=== PATIENT | male | born 1935 | race Caucasian/White ===

== ENCOUNTER 2019-04-22 16:59 | Emergency (ER) | payer BC ==
[~2019-04-22] VITALS: Ht 170.2 cm; Wt 90.9 kg
[~2019-04-22 16:59] MED LIST: ASPI-845 PO; ATOR20TA PO; CARV-50 PO; GABA-532 PO; PANT20TA3 PO
[2019-04-22] MEDS ORDERED: dexamethasone sod phosphate 10mg/ml inj IV STA (17:23)
[2019-04-22] MEDS ORDERED: normal saline 1000ML IV soln IVB ONE (17:25)
[2019-04-22] MEDS ORDERED: famotidine/PF 10 mg/ml inj IV ONE (17:25)
[2019-04-22] MEDS ORDERED: diphenhydrAMINE 50 mg/ml inj IV ONE (17:25)
[2019-04-22 17:57] LABS: BASOPHILS % (AUTO) 0.3 % (0-1); EOSINOPHILS # (AUTO) 0.2 X10'3 (0-0.9); EOSINOPHILS % (AUTO) 1.6 % (0-6); HEMATOCRIT 41.4 % (42.0-52.0); LYMPHOCYTES # (AUTO) 2.1 X10'3 (1.1-4.8); LYMPHOCYTES % (AUTO) 16.3 % (21-51); MEAN CORPUSCULAR HEMOGLOBIN 31.1 PG (27.0-31.0); MEAN CORPUSCULAR HGB CONC 33.8 g/dL (33.0-36.5); MEAN CORPUSCULAR VOLUME 92.1 FL (78-98); MEAN PLATELET VOLUME 7.7 FL (7.4-10.4); MONOCYTES % (AUTO) 7.8 % (2-12); NEUTROPHILS # (AUTO) 9.5 X10'3 (1.8-7.7); PLATELET COUNT 269 X10'3 (140-440); RED BLOOD COUNT 4.49 X10'6 (4.70-6.10); RED CELL DISTRIBUTION WIDTH 14.4 % (11.5-14.5); WHITE BLOOD COUNT 12.8 X10'3 (4.5-11.0)
[2019-04-22 18:12] LABS: ALANINE AMINOTRANSFERASE 24 U/L (12-78); ALBUMIN 3.9 G/DL (3.4-5.0); ALBUMIN/GLOBULIN RATIO 1.2 (1.1-1.5); ALKALINE PHOSPHATASE 72 IU/L (46-116); ANION GAP 12 (8-16); ASPARTATE AMINO TRANSFERASE 13 U/L (10-37); BILIRUBIN,TOTAL 0.5 MG/DL (0.1-1.0); BLOOD UREA NITROGEN 13 MG/DL (7-18); BUN/CREATININE RATIO 12.7 (5.4-32.0); CALCIUM 8.9 MG/DL (8.5-10.1); CHLORIDE 105 MMOL/L (99-107); CREATININE 1.02 MG/DL (0.60-1.10); GLUCOSE 88 MG/DL (70-104); POTASSIUM 4.1 MMOL/L (3.5-5.1); SODIUM 139 MMOL/L (135-145); TOTAL CARBON DIOXIDE 22.3 MMOL/L (24-32); TOTAL PROTEIN 7.1 G/DL (6.4-8.2); eGFR 69 ML/MIN
[2019-04-22] MEDS ORDERED: LIDOcaine Viscous 15ml cup PO ONE (18:20)
[2019-04-22] MEDS ORDERED: mag hydrox/Alum hydrox/simeth 30ml oral suspension PO ONE (18:20)
[2019-04-22] MEDS ORDERED: METH4TAB3 PO (19:34)
[2019-04-22 19:51] VITALS: BP 125/75
== END 2019-04-22 19:53 | disposition home or self-care (01) ==
LOC: ER 17:00
DX: T63.441A Toxic effect of venom of bees, accidental (unintentional), initial encounter (principal); T44.901A Poisoning by unspecified drugs primarily affecting the autonomic nervous system, accidental (unintentional), initial encounter; I25.10 Atherosclerotic heart disease of native coronary artery without angina pectoris; E78.00 Pure hypercholesterolemia, unspecified; I25.2 Old myocardial infarction; J44.9 Chronic obstructive pulmonary disease, unspecified; Z79.82 Long term (current) use of aspirin; Z79.899 Other long term (current) drug therapy; Z98.61 Coronary angioplasty status; Z98.890 Other specified postprocedural states; Y92.89 Other specified places as the place of occurrence of the external cause
CPT/HCPCS: 36415; 80053; 85025; 93005; 96374; 96375; 99284; J1100; J1200; J3490; J7030

== ENCOUNTER 2022-10-26 07:59 | Emergency (ER) | payer BC ==
[~2022-10-26] VITALS: Ht 170.2 cm; Wt 75.5 kg
[~2022-10-26 07:59] MED LIST changes: +METH4TAB3 PO; +PANT20TA18 PO; -PANT20TA3 PO
[2022-10-26 08:07] VITALS: BP 135/55
[2022-10-26 08:45] LABS: BASOPHILS % (AUTO) 0.6 % (0-1); EOSINOPHILS # (AUTO) 0.2 X10'3 (0-0.9); EOSINOPHILS % (AUTO) 2.5 % (0-6); HEMATOCRIT 41.8 % (42.0-52.0); HEMOGLOBIN 13.7 g/dl (14.0-17.9); LYMPHOCYTES # (AUTO) 1.7 X10'3 (1.1-4.8); MEAN CORPUSCULAR HEMOGLOBIN 30.8 PG (27.0-31.0); MEAN CORPUSCULAR HGB CONC 32.9 g/dL (33.0-36.5); MEAN CORPUSCULAR VOLUME 93.5 FL (78-98); MEAN PLATELET VOLUME 7.5 FL (7.4-10.4); MONOCYTES # (AUTO) 0.9 X10'3 (0-0.9); MONOCYTES % (AUTO) 11.2 % (2-12); NEUTROPHILS # (AUTO) 5.1 X10'3 (1.8-7.7); NEUTROPHILS % (AUTO) 63.7 % (42-75); PLATELET COUNT 279 X10'3 (140-440); RED BLOOD COUNT 4.46 X10'6 (4.70-6.10); RED CELL DISTRIBUTION WIDTH 14.4 % (11.5-14.5); WHITE BLOOD COUNT 7.9 X10'3 (4.5-11.0)
[2022-10-26 09:01] LABS: ALANINE AMINOTRANSFERASE 19 U/L (12-78); ALBUMIN/GLOBULIN RATIO 1.3 (1.1-1.5); ALKALINE PHOSPHATASE 62 IU/L (46-116); ANION GAP 5 (8-16); ASPARTATE AMINO TRANSFERASE 17 U/L (10-37); BILIRUBIN,TOTAL 0.5 MG/DL (0.1-1.0); BLOOD UREA NITROGEN 14 MG/DL (7-18); BUN/CREATININE RATIO 16.3 (5.4-32.0); CALCIUM 9.1 MG/DL (8.5-10.1); CHLORIDE 105 MMOL/L (99-107); CREATININE 0.86 MG/DL (0.60-1.10); GLUCOSE 122 MG/DL (70-104); LIPASE < 50 U/L (73-393); POTASSIUM 4.2 MMOL/L (3.5-5.1); SODIUM 139 MMOL/L (135-145); TOTAL CARBON DIOXIDE 28.6 MMOL/L (24-32); eGFR 84 ML/MIN
[2022-10-26] MEDS ORDERED: LOPE2CAP PO (10:46)
== END 2022-10-26 12:34 | disposition home or self-care (01) ==
LOC: ER 08:00
DX: K40.90 Unilateral inguinal hernia, without obstruction or gangrene, not specified as recurrent (principal); R19.7 Diarrhea, unspecified; E78.00 Pure hypercholesterolemia, unspecified; J44.9 Chronic obstructive pulmonary disease, unspecified
CPT/HCPCS: 36415; 74176; 80053; 83690; 85025; 99284

== ENCOUNTER 2022-12-23 09:06 | Day surgery (SDC) | payer BC ==
[2022-12-15 12:07] LABS: BASOPHILS # (AUTO) 0.1 X10'3 (0-0.2); BASOPHILS % (AUTO) 0.9 % (0-1); EOSINOPHILS # (AUTO) 0.2 X10'3 (0-0.9); EOSINOPHILS % (AUTO) 2.8 % (0-6); LYMPHOCYTES # (AUTO) 1.8 X10'3 (1.1-4.8); LYMPHOCYTES % (AUTO) 21.6 % (21-51); MEAN CORPUSCULAR HEMOGLOBIN 31.1 PG (27.0-31.0); MEAN CORPUSCULAR HGB CONC 33.3 g/dL (33.0-36.5); MEAN CORPUSCULAR VOLUME 93.4 FL (78-98); MEAN PLATELET VOLUME 7.4 FL (7.4-10.4); MONOCYTES # (AUTO) 0.9 X10'3 (0-0.9); MONOCYTES % (AUTO) 11.4 % (2-12); NEUTROPHILS # (AUTO) 5.3 X10'3 (1.8-7.7); NEUTROPHILS % (AUTO) 63.3 % (42-75); PRE OP HEMATOCRIT 38.2 % (42.0-52.0); PRE OP HEMOGLOBIN 12.7 g/dL (14.0-17.9); PRE OP PLATELET COUNT 269 X10'3 (140-440); RED BLOOD COUNT 4.09 X10'6 (4.70-6.10); RED CELL DISTRIBUTION WIDTH 14.5 % (11.5-14.5)
[2022-12-15 12:32] LABS: ALBUMIN 3.6 G/DL (3.4-5.0); ALBUMIN/GLOBULIN RATIO 1.2 (1.1-1.5); ALKALINE PHOSPHATASE 65 IU/L (46-116); BLOOD UREA NITROGEN 13 MG/DL (7-18); BUN/CREATININE RATIO 17.6 (10.0-20.0); CALCIUM 8.9 MG/DL (8.5-10.1); CHLORIDE 106 MMOL/L (99-107); CREATININE 0.74 MG/DL (0.60-1.10); PRE OP ALT 12 U/L (30-65); PRE OP ANION GAP 7 (8-16); PRE OP AST 8 U/L (10-37); PRE OP BILIRUB, TOTAL 0.4 MG/DL (0.0-1.0); PRE OP GLUCOSE 105 MG/DL (70-104); PRE OP POTASSIUM 4.5 MMOL/L (3.4-5.1); PRE OP SODIUM 140 MMOL/L (135-145); TOTAL PROTEIN 6.5 G/DL (6.4-8.2); eGFR > 90 ML/MIN
[~2022-12-23] VITALS: Ht 170.2 cm; Wt 77.8 kg
[2022-12-23] VITALS (9 sets, daily range): BP systolic 137–168; BP diastolic 61–72
[~2022-12-23 09:06] MED LIST changes: -ASPI-845 PO; +CLOP75TA34 PO; +DOCUMENT DATE & TIME OF BETA-BLOCKER PO ONE; +FERR-116 PO; +FLO0.4C PO; -METH4TAB3 PO; +cefazolin 2gm/D5W 100mL 100 ML IV ONE; +famotidine 20mg tablet PO ONE; +ringers solution, lacted 1,000 ML IV SCH
[2022-12-23] MEDS ORDERED: LIDOcaine 1% 30ml preserv. free vial ONE (11:00)
[2022-12-23] MEDS ORDERED: BUPIVAcaine/PF 2.5 mg/ml (0.25%) 30ml vial ONE (11:00)
[2022-12-23] MEDS ORDERED: HYDROcodone/acetaminophen 5mg/325mg tablet PO PRN (11:05)
[2022-12-23] MEDS ORDERED: sevoflurane 250ml liquid IH ONE (11:12)
[2022-12-23] MEDS ORDERED: morphine 2 MG/ML inj. syringe IV PRN (11:15)
[2022-12-23] MEDS ORDERED: labetalol 20mg/4ml (5mg/ml) syringe IV PRN (11:15)
[2022-12-23] MEDS ORDERED: hydrALAZINE 20mg/ml inj. IV PRN (11:15)
[2022-12-23] MEDS ORDERED: ondansetron/PF 4mg/2ml inj IV PRN (11:15)
[2022-12-23] MEDS ORDERED: acetaminophen 1,000mg/100ml IV 100 ML IV PRN (11:15)
[2022-12-23] MEDS ORDERED: ringers solution, lacted 1,000 ML IV SCH (11:15)
[2022-12-23] MEDS ORDERED: proCHLORperazine 10 MG/2 ml inj IV PRN (11:15)
[2022-12-23] MEDS ORDERED: meperidine/PF 25mg/ml syringe IV PRN ×3 (11:15)
[2022-12-23] MEDS ORDERED: morphine 4 MG/ML inj SYRINge IV PRN (11:15)
[2022-12-23] MEDS ORDERED: fentaNYL /PF 50mcg/ml 5ml ampule ONE (11:17)
[2022-12-23] MEDS ORDERED: midazolam 1 mg/ML 2ml injection ONE (11:17)
[2022-12-23] MEDS ORDERED: dexamethasone sod phosphate 4mg/ml inj. ONE (12:14)
[2022-12-23] MEDS ORDERED: ondansetron/PF 4mg/2ml inj ONE (12:14)
[2022-12-23] MEDS ORDERED: rocuronium 10mg/ml inj IV ONE (12:14)
[2022-12-23] MEDS ORDERED: LIDOcaine 2% (20mg/ml) 5ml vial ONE (12:14)
[2022-12-23] MEDS ORDERED: propofol inj 20 ML IV ONE (12:14)
[2022-12-23] MEDS ORDERED: neostigmine methylsulfate 1 MG/ML 10ml vial ONE (12:16)
[2022-12-23] MEDS ORDERED: glycopyrrolate 0.2mg/ml inj ONE (12:16)
[2022-12-23] MEDS ORDERED: sugammadex 200mg/2ml injection IV ONE (12:26)
--- NOTE | 2022-12-23 12:40 | NUR ---
Received from OR via BED, accompanied by Anesthesiologist and report given by Anesthesiologist. PATIENT WAKING UP, NO S/S OF PAIN, V/S WNL, SCD ON, 20G TO LUE, ABDOMEN LAP SITE CLEAN W/ NO S/S OF COMPLICATIONS. F/C DRAINING CLEAR YELLOW URINE
--- NOTE | 2022-12-23 13:45 | NUR ---
PATIENT A&OX4, DENIES PAIN, V/S WNL, SCD OFF, 20G TO LUE D/C, ABDOMEN LAP SITE CLEAN W/ NO S/S OF COMPLICATIONS. F/C DRAINING CLEAR YELLOW URINE. I HAVE DEMONSTRATED F/C CARE AND PATIENT HAS VERBALIZED UNDERSTANDING ON HOME CARE. EDUCATION PACKET GIVEN TO PATIENT WELL FOR F/C MANAGEMENT FOR HOME AND D/C . . I HAVE REVIEWED D/C INSTRUCTIONS WITH PATIENT INSTRUCTIONS WITH PATIENT AND THEY HAVE VERBALIZED UNDERSTANDING. PATIENT D/C HOME WITH ALL BELONGINGS AND FAMILY TRANSPORTED PATIENT HOME.
== END 2022-12-23 13:40 | disposition home or self-care (01) ==
LOC: PAS 09:06
PROVIDERS: ATTEND Surgery
DX: K40.30 Unilateral inguinal hernia, with obstruction, without gangrene, not specified as recurrent (principal); K21.9 Gastro-esophageal reflux disease without esophagitis; I25.10 Atherosclerotic heart disease of native coronary artery without angina pectoris; E78.00 Pure hypercholesterolemia, unspecified; I10 Essential (primary) hypertension; G62.9 Polyneuropathy, unspecified; N40.0 Benign prostatic hyperplasia without lower urinary tract symptoms; I25.2 Old myocardial infarction; F17.210 Nicotine dependence, cigarettes, uncomplicated; M19.90 Unspecified osteoarthritis, unspecified site; Z96.659 Presence of unspecified artificial knee joint; Z95.5 Presence of coronary angioplasty implant and graft; Z79.899 Other long term (current) drug therapy; Z79.01 Long term (current) use of anticoagulants; Z98.890 Other specified postprocedural states; Z82.49 Family history of ischemic heart disease and other diseases of the circulatory system; Z82.61 Family history of arthritis
CPT/HCPCS: 36415; 49650; 80053; 82948; 85025; C1758; C1781; J0131; J0690; J1100; J2250; J2405; J2704; J2710; J3010; J3490; J7030; J7120; Z7506; Z7508; Z7512; A4215; A4618

== ENCOUNTER 2022-12-26 08:18 | Emergency (ER) | payer BC ==
[~2022-12-26] VITALS: Ht 170.2 cm; Wt 75.0 kg
[~2022-12-26 08:18] MED LIST changes: -DOCUMENT DATE & TIME OF BETA-BLOCKER PO ONE; -cefazolin 2gm/D5W 100mL 100 ML IV ONE; -famotidine 20mg tablet PO ONE; -ringers solution, lacted 1,000 ML IV SCH
[2022-12-26 08:26] VITALS: BP 133/58
[2022-12-26] MEDS ORDERED: LIDOcaine 2% 10ml TOPICAL JELLY (Urojet) TP ONE (09:25)
[2022-12-26 10:08] LABS: CLARITY,URINE CLOUDY (Clear); COLOR,URINE YELLOW (Yellow); GLUCOSE, URINE NEGATIVE (Neg); KETONES,URINE NEGATIVE (Neg); LEUKOCYTE ESTERASE ,URINE LARGE (Neg); NITRITES, URINE NEGATIVE (Neg); OCCULT BLOOD,URINE LARGE (Neg); PH,URINE 7.5 (4.8-8.0); PROTEIN,URINE 30 mg/dl (Neg); UROBILINOGEN,URINE 0.2 E.U/dL (0.2-1.0)
[2022-12-26 10:09] LABS: UA COLLECTION TYPE VOIDED
[2022-12-26 10:17] LABS: BACTERIA,URINE FEW /HPF (Neg); MUCUS STRANDS NONE SEEN /LPF (Neg); RBC,URINE TNTC /HPF (0-2); SQUAMOUS EPITHELIAL CELL,UR FEW /LPF (FEW); WBC,URINE TNTC /HPF (0-4)
[2022-12-26] MEDS ORDERED: FLO0.4C PO (10:59)
[2022-12-26] MEDS ORDERED: SULF1TAB49 PO (10:59)
[2022-12-26] MEDS ORDERED: sulfamethoxazole/trimethoprim DS (800/160mg) tablet PO ONE (11:05)
--- NOTE | 2022-12-26 11:19 | NUR ---
I AGREE WITH THE ASSESSMENT PER Kelly WRIGHT LVN.
== END 2022-12-26 11:33 | disposition home or self-care (01) ==
LOC: ER 08:18
DX: N39.0 Urinary tract infection, site not specified (principal); T81.9XXA Unspecified complication of procedure, initial encounter; I10 Essential (primary) hypertension; E78.00 Pure hypercholesterolemia, unspecified; I51.9 Heart disease, unspecified; J44.9 Chronic obstructive pulmonary disease, unspecified; Z90.49 Acquired absence of other specified parts of digestive tract; Z79.899 Other long term (current) drug therapy; Z79.1 Long term (current) use of non-steroidal anti-inflammatories (NSAID)
CPT/HCPCS: 81001; 87077; 87088; 87186; 99283